=== PATIENT | female | born 1960 | race Caucasian/White ===

== ENCOUNTER 2016-10-22 09:54 | Inpatient (IN) | payer BC, OTHER ==
--- NOTE | 2016-10-22 10:19 | ER Document Report ---
ED General - General Chief Complaint: Vomiting Stated Complaint: VOMITING Mode of Arrival: Ambulatory Information source: Patient TRAVEL OUTSIDE OF THE [place] IN LAST 30 DAYS: No - HPI Onset: Other - 3 DAYS Onset/Duration: Gradual Quality of pain: Cramping, Dull, Fullness, Pressure Severity: Moderate Context: CHEMOTHERAPY 10/19 Associated symptoms: Nausea, Vomiting. denies: Chills, Nonproductive cough, Productive cough, Diarrhea, Fever Exacerbated by: Movement Relieved by: Remaining still - Related Data Allergies/Adverse Reactions: sulfamethoxazole [From Bactrim] Allergy (Verified 10/22/16 10:01) trimethoprim [From Bactrim] Allergy (Verified 10/22/16 10:01) Iodinated Contrast Media - Oral and [Iodinated Contrast Media - IV Dye] Adverse Reaction (Verified 10/22/16 10:01) n/v Past Medical History - General Information source: Patient, Relative - Social History Smoking Status: Unknown if Ever Smoked Cigarette use (# per day): No Chew tobacco use (# tins/day): No Frequency of alcohol use: None Drug Abuse: None Lives with: Spouse/Significant other Family History: Reviewed & Not Pertinent Patient has suicidal ideation: No Patient has homicidal ideation: No - Past Medical History Cardiac Medical History: Reports: None Denies: Hx Congestive Heart Failure, Hx Coronary Artery Disease, Hx DVT, Hx Heart Attack, Hx Hypercholesterolemia, Hx Hypertension, Hx Pulmonary Embolism Pulmonary Medical History: Reports: None Denies: Hx Asthma, Hx Bronchitis, Hx COPD, Hx Pneumonia Neurological Medical History: Reports: None. Denies: Hx Cerebrovascular Accident, Hx Seizures Endocrine Medical History: Reports: Hx Hypothyroidism. Denies: Hx Diabetes Mellitus Type 1, Hx Diabetes Mellitus Type 2, Hx Hyperthyroidism Renal/ Medical History: Reports: None Malignancy Medical History: Reports: Hx Ovarian Cancer - MMMT, Hx Renal (Kidney ) Cancer - Status post partial left nephrectomy for same GI Medical History: Reports: Hx Gastroesophageal Reflux Disease, Hx Ulcer. Denies: Hx Cirrhosis, Hx Hepatitis Musculoskeltal Medical History: Reports None, Denies Hx Arthritis Psychiatric Medical History: Reports: None Denies: Hx Depression Infectious Medical History: Denies: Hx Hepatitis Past Surgical History: Reports: Hx Abdominal Surgery, Hx Herniorrhaphy - Umbilical, Hx Hysterectomy, Hx Kidney (Renal Surgery), Hx Thyroid Surgery, Hx Tubal Ligation, Hx Umbilical Hernia, Other - Left nephrostomy tube. Prior colostomy, with subsequent closure of same. - Immunizations Hx Diphtheria, Pertussis, Tetanus Vaccination: Yes Hx Pneumococcal Vaccination: 10/23/95 Review of Systems - Review of Systems Constitutional: Weakness, Weight loss - 7# SINCE CHEMO EENT: No symptoms reported Cardiovascular: No symptoms reported Respiratory: No symptoms reported Gastrointestinal: See HPI, Constipation - NO BM LAST 3 DAYS Genitourinary: No symptoms reported Female Genitourinary: No symptoms reported Musculoskeletal: No symptoms reported Skin: No symptoms reported Neurological/Psychological: No symptoms reported Physical Exam - Vital signs Vitals: Temp Pulse Resp BP Pulse Ox 97.3 F 90 24 H 123/63 99 10/22/16 10:01 10/22/16 10:01 10/22/16 10:01 10/22/16 10:01 10/22/16 10:01 Interpretation: Tachypneic. No: Hypotensive, Tachycardic, Hypoxic, Febrile - General General appearance: Appears well, Alert In distress: None - HEENT Head: Normocephalic Eyes: Pale conjunctiva Conjunctiva: Normal Ears: Normal Nasal: Normal Mucous membranes: Dry Pharynx: Normal Neck: Normal - Respiratory Respiratory status: No respiratory distress Breath sounds: Normal - Cardiovascular Rhythm: Regular Heart sounds: Normal auscultation Murmur: No - Abdominal Distension: Distended, Tympanitic Bowel sounds: Normal Tenderness: Tender - MORE IN UPPER - Extremities General upper extremity: Normal inspection General lower extremity: Normal inspection. No: Edema - Neurological Neuro grossly intact: Yes Cognition: Normal Orientation: AAOx4 - Psychological Associated symptoms: Normal affect, Normal mood - Skin Skin Temperature: Cool Skin Moisture: Dry Skin Color: Pale Notes: [place] Course - Vital Signs Vital signs: Temp Pulse Resp BP Pulse Ox 97.3 F 90 24 H 123/63 99 10/22/16 10:01 10/22/16 10:01 10/22/16 10:01 10/22/16 10:01 10/22/16 10:01 - Laboratory Result Diagrams: 10/22/16 11:21 10/22/16 11:21 Laboratory results interpreted by me: 10/22/16 10/22/16 11:21 11:21 RBC 3.52 L Hgb 9.6 L Hct 29.4 L RDW 19.5 H Plt Count 710 H Seg Neuts % (Manual) 94 H Band Neutrophils % 2 L Lymphocytes % (Manual) 2 L Monocytes % (Manual) 1 L Abs Lymphs (Manual) 0.2 L Sodium 130.8 L Chloride 95 L Alkaline Phosphatase 132 H Total Protein 5.2 L Albumin 2.7 L - EKG Interpretation by Me EKG shows normal: Sinus rhythm, [place], Intervals, QRS Complexes, ST-T Waves Rate: Normal Rhythm: NSR - Consults DR. CORDERO Time consulted: 12:14 Consulted provider: will come to ER Discharge - Discharge Clinical Impression: Dehydration Vomiting Qualifiers: Vomiting type: unspecified Vomiting Intractability: non-intractable Nausea presence: with nausea Qualified Code(s): R11.2 - Nausea with vomiting, unspecified Abdominal pain Qualifiers: Abdominal location: generalized Qualified Code(s): R10.84 - Generalized abdominal pain Primary cancer of ovary with widespread metastatic disease Qualifiers: Laterality: left Qualified Code(s): C56.2 - Malignant neoplasm of left ovary Condition: Poor Disposition: ADMITTED INPATIENT Admitting Provider: Hospitalist Referrals: GILBERT BURGESS MD [Primary Care Provider] - Follow up as needed
[2016-10-22] MEDS ORDERED: NORMAL SALINE 1000 ML 500 ML IV ONE (10:28)
[2016-10-22] MEDS ORDERED: ONDANSETRON HCL INJ/PF 4 MG/2 ML SDV IV ONE (10:34)
[2016-10-22] MEDS ORDERED: HYDROMORPHONE HCL INJ/PF 2 MG/ML AMPULE IV ONE ×3 (10:34→12:06)
[2016-10-22 11:35] LABS: HEMATOCRIT 29.4 % (36.0-47.0); HEMOGLOBIN 9.6 g/dL (12.0-15.5); HGB HCT DIFFERENCE -0.6; MEAN CORPUSCULAR HEMOGLOBIN 27.2 pg (27.0-33.4); MEAN CORPUSCULAR HGB CONC 32.6 g/dL (32.0-36.0); MEAN CORPUSCULAR VOLUME 84 fl (80-97); RED BLOOD COUNT 3.52 10^6/uL (3.72-5.28); RED CELL DISTRIBUTION WIDTH 19.5 % (11.5-14.0); WHITE BLOOD COUNT 8.4 10^3/uL (4.0-10.5)
[2016-10-22 11:52] LABS: BAND NEUTROPHILS % (MANUAL) 2 % (3-5); BASOPHILS % (MANUAL) 1 % (0-2); EOSINOPHILS % (MANUAL) 0 % (0-6); LYMPHOCYTES % (MANUAL) 2 % (13-45); TOTAL CELLS COUNTED 100
[2016-10-22 11:53] LABS: ALANINE AMINOTRANSFERASE 26 U/L (9-52); ALBUMIN 2.7 g/dL (3.5-5.0); ALKALINE PHOSPHATASE 132 U/L (38-126); ANION GAP 10 (5-19); ASPARTATE AMINO TRANSFERASE 16 U/L (14-36); BILIRUBIN,TOTAL 0.4 mg/dL (0.2-1.3); BLOOD UREA NITROGEN 17 mg/dL (7-20); CALCIUM 9.1 mg/dL (8.4-10.2); CARBON DIOXIDE 26 mmol/L (22-30); CHLORIDE 95 mmol/L (98-107); CREATININE RESULT 0.82 mg/dL (0.52-1.25); GLUCOSE 90 mg/dL (75-110); POTASSIUM 4.7 mmol/L (3.6-5.0); SODIUM 130.8 mmol/L (137-145); TOTAL PROTEIN 5.2 g/dL (6.3-8.2)
[2016-10-22 11:54] LABS: ANISOCYTOSIS 1+; HYPOCHROMASIA 2+; TOXIC GRANULATION SLIGHT
[2016-10-22 12:35] LABS: APPEARANCE,URINE CLOUDY; BILIRUBIN,URINE NEGATIVE (NEGATIVE); GLUCOSE, URINE NEGATIVE (NEGATIVE); KETONES,URINE NEGATIVE (NEGATIVE); LEUKOCYTE ESTERASE,URINE LARGE (NEGATIVE); NITRITE,URINE NEGATIVE (NEGATIVE); PROTEIN,URINE 100 mg/dL (NEGATIVE); UROBILINOGEN,URINE NEGATIVE mg/dL (<2.0)
[2016-10-22] MEDS ORDERED: HYDROMORPHONE HCL INJ/PF 2 MG/ML AMPULE ONE (13:05)
[2016-10-22] MEDS ORDERED: ENOXAPARIN SODIUM INJ 40 MG/0.4 ML DISP.SYRIN SUBCUT ONE (14:00)
[2016-10-22] MEDS: DRONABINOL 2.5 MG CAPSULE PO SCH (14:59)
[2016-10-22] MEDS: HYDROMORPHONE HCL INJ/PF 2 MG/ML AMPULE IV PRN ×4 (14:59→21:51)
--- NOTE | 2016-10-22 15:36 | PDOC H&P ---
History of Present Illness Admission Date/PCP: 10/22/16 12:42 GILBERT BURGESS Patient complains of: Nausea, vomiting and abdominal pain History of Present Illness: JAEL EATON is a 55 year old unfortunate female, known to our service from previous admissions. She has a history stage IV adenosarcoma. She is a patient of Dr Adams, oncologist, locally. He had advised patient to seek Hospice care due to progression of disease despite aggressive treatment. She opted for another opinion instead , and has been seen and treated by [facility] in [place]. They told her she had MMT stage IV ovarian cancer and she could be treated. She received chemotherapy there on 10/19. She returned home yesterday and has been vomiting and having increasing abdominal pain and back pain since she got home. She is unable to keep her pain medications down and her pain has gotten out of control. 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 She has recurrent UTIs. Her urine is cloudy this am. She denies any fevers or chills. 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 Her pain is constant and waxes and wanes in intensity. Past Medical History Cardiac Medical History: Reports: None Denies: Congestive Heart Failure, Coronary Artery Disease, DVT, Myocardial Infarction, Hyperlipidema, Hypertension, Pulmonary Embolism Pulmonary Medical History: Reports: None Denies: Asthma, Bronchitis, Chronic Obstructive Pulmonary Disease (COPD), Pneumonia EENT Medical History: Reports: None Neurological Medical History: Reports: None Denies: Seizures Endocrine Medical History: Reports: Hypothyroidism Denies: Diabetes Mellitus Type 1, Diabetes Mellitus Type 2, Hyperthyroidism Renal/ Medical History: Reports: None Malignancy Medical History: Reports: Ovarian Cancer - MMMT, Renal (Kidney) Cancer - Status post partial left nephrectomy for same GI Medical History: Reports: Gastroesophageal Reflux Disease Denies: Cirrhosis, Hepatitis Musculoskeltal Medical History: Reports: None Denies: Arthritis Skin Medical History: Reports: None Psychiatric Medical History: Reports: None Denies: Depression Traumatic Medical History: Reports: None Hematology: Reports: Anemia Infectious Medical History: Reports: Other - ESBL of urine Past Surgical History Past Surgical History: Reports: Herniorrhaphy - Umbilical, Hysterectomy, Tubal Ligation, Other - Left nephrostomy tube. Prior colostomy, with subsequent closure of same. Social History Information Source: Patient Lives with: Spouse/Significant other Smoking Status: Never Smoker Frequency of Alcohol Use: None Hx Recreational Drug Use: No Drugs: None Hx Prescription Drug Abuse: No - Advance Directive Resuscitation Status: Full Code Surrogate healthcare decision maker:: [place], should she become incapcitated Family History Family History: Hypertension Parental Family History Reviewed: Yes Children Family History Reviewed: Yes Sibling(s) Family History Reviewed.: Yes Medication/Allergy Home Medications: Levothyroxine Sodium 200 mcg PO DAILY 09/30/14 Hydromorphone HCl [Hydromorphone ER] 1 tab PO DAILY 07/12/16 Ondansetron HCl [Zofran 8 mg Tablet] 1 tab PO BID 07/12/16 Promethazine HCl [Phenergan 25 mg Tablet] 2 tab PO QHS 07/12/16 Diphenhydramine HCl [Allergy] 25 mg PO DAILY 08/29/16 Hydromorphone HCl [Hydromorphone ER] 8 - 16 mg PO Q3H PRN 08/29/16 Melatonin 3 mg PO QHS 08/29/16 Omeprazole 40 mg PO DAILY 08/29/16 Ceftazidime [Fortaz] 1 gm IV Q8H #18 vial.port 09/28/16 Dronabinol [Marinol 2.5 mg Capsule] 5 mg PO BIDACLS #60 capsule 09/28/16 Ertapenem Sodium [Invanz Inj 1 gm Vial] 1 gm IV NOON #10 vial 09/28/16 Ondansetron [Zofran Odt] 8 mg PO Q6H #120 tab.rapdis 09/28/16 Polyethylene Glycol 3350 [Miralax Powder 17 gm/Packet] 17 gm PO DAILYP PRN #30 powd.pack 09/28/16 Promethazine HCl [Phenergan 25 mg Supp.rect] 25 mg SD Q4HP PRN #12 supp.rect 05/07 Sennosides/Docusate 8.6-50 mg [Senna Plus Tablet] 1 each PO BIDP PRN #60 tablet 09/28/16 Allergies/Adverse Reactions: sulfamethoxazole [From Bactrim] Allergy (Verified 10/22/16 10:01) trimethoprim [From Bactrim] Allergy (Verified 10/22/16 10:01) Iodinated Contrast Media - Oral and [Iodinated Contrast Media - IV Dye] Adverse Reaction (Verified 10/22/16 10:01) n/v Review of Systems Constitutional: PRESENT: fatigue, weakness Eyes: ABSENT: visual disturbances Ears: ABSENT: hearing changes Cardiovascular: ABSENT: chest pain, dyspnea on exertion, edema, orthropnea, palpitations Respiratory: ABSENT: cough, hemoptysis Gastrointestinal: PRESENT: abdominal pain, bloating, constipation, nausea, vomiting Genitourinary: PRESENT: dysuria Musculoskeletal: PRESENT: back pain Integumentary: ABSENT: rash, wounds Neurological: PRESENT: weakness Psychiatric: ABSENT: anxiety, depression, homidical ideation, suicidal ideation Endocrine: PRESENT: as per HPI Hematologic/Lymphatic: PRESENT: lymphadenopathy Physical Exam Vital Signs: Temp Pulse Resp BP Pulse Ox 97.3 F 83 24 H 118/55 L 96 10/22/16 10:01 10/22/16 14:04 10/22/16 10:01 10/22/16 14:04 10/22/16 14:04 General appearance: PRESENT: mild distress, thin, well-developed, well-nourished Head exam: PRESENT: atraumatic, normocephalic Eye exam: PRESENT: conjunctiva pink, EOMI, PERRLA. ABSENT: scleral icterus Ear exam: PRESENT: normal external ear exam Mouth exam: PRESENT: moist, tongue midline Neck exam: ABSENT: carotid bruit, JVD, lymphadenopathy, thyromegaly Respiratory exam: PRESENT: clear to auscultation cesar. ABSENT: rales, rhonchi, wheezes Cardiovascular exam: PRESENT: RRR. ABSENT: diastolic murmur, rubs, systolic murmur Pulses: PRESENT: normal carotid pulses, normal radial pulses GI/Abdominal exam: PRESENT: diminished bowel sounds, distended Rectal exam: PRESENT: deferred Gentrourinary exam: PRESENT: indwelling catheter - left nephrostomy Extremities exam: PRESENT: full ROM. ABSENT: calf tenderness, clubbing, pedal edema Neurological exam: PRESENT: alert, awake, oriented to person, oriented to place , oriented to time, oriented to situation, CN II-XII grossly intact. ABSENT: motor sensory deficit Psychiatric exam: PRESENT: appropriate affect, normal mood. ABSENT: homicidal ideation, suicidal ideation Skin exam: PRESENT: dry, pallor, warm Results Impressions: Abdomen X-Ray 10/22/16 10:34 IMPRESSION: NONOBSTRUCTED BOWEL-GAS PATTERN. RELATIVELY STABLE APPEARANCE OF KNOWN MASS BETTER CHARACTERIZED ON PRIOR CT. Assessment & Plan - Diagnosis (1) Metastatic adenocarcinoma Is this a current diagnosis for this admission?: YesPlan: Patient is getting chemotherapy at [facility] in [place]. She received her last chemotherapy on 10/19 and returned home yesterday. She has been vomiting and having diarrhea since she returned home. Will hydrate with IV fluids, prn anti-emetics and IV dilaudid for pain. (2) Abdominal pain Qualifiers: Abdominal location: generalized Qualified Code(s): R10.84 - Generalized abdominal pain Is this a current diagnosis for this admission?: YesPlan: IV dilaudid 2 mg IV q2h prn Along with current fentanyl patch (3) Primary cancer of ovary with widespread metastatic disease Qualifiers: Laterality: left Qualified Code(s): C56.2 - Malignant neoplasm of left ovary; C80.0 - Disseminated malignant neoplasm, unspecified Is this a current diagnosis for this admission?: Yes (4) Anemia due to antineoplastic chemotherapy Is this a current diagnosis for this admission?: YesPlan: Presently stable will monitor and transfuse hgb<8.0 (5) Dehydration Is this a current diagnosis for this admission?: YesPlan: IV hydration (6) UTI (urinary tract infection) Qualifiers: Urinary tract infection type: site unspecified Is this a current diagnosis for this admission?: YesPlan: Will start broad spectrum antibiotics and send urine for culture. 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 Is this a current diagnosis for this admission?: YesPlan: Saline douche as needed (11) DVT prophylaxis Is this a current diagnosis for this admission?: YesPlan: Lovenox 40 mg daily (12) Pain of metastatic malignancy Is this a current diagnosis for this admission?: YesPlan: Continue pain medications, with breakthrough IV prn analgesics - Time Time Spent: 50 to 70 Minutes Critical Time spent with patient: 25-34 minutes Medications reviewed and adjusted accordingly: Yes Anticipated discharge: Home with Homehealth - Inpatient Certification Based on my medical assessment, after consideration of the patient's comorbidities, presenting symptoms, or acuity I expect that the services needed warrant INPATIENT care.: Yes I certify that my determination is in accordance with my understanding of Medicare's requirements for reasonable and necessary INPATIENT services [42 CFR 412.3e].: Yes Medical Necessity: Failure to Improve With Outpatient Therapy, Need For IV Fluids, Need for Pain Control, Need for IV Antibiotics
[2016-10-22] MEDS: PROMETHAZINE HCL INJ 25 MG/1 ML VIAL IV PRN ×2 (18:22→23:18)
[2016-10-22] MEDS: ONDANSETRON HCL INJ/PF 4 MG/2 ML SDV IV PRN (19:36)
[2016-10-22] MEDS: DEXAMETHASONE SOD PHOSPHATE INJ 4 MG/1 ML VIAL IV SCH (21:52)
[2016-10-22] MEDS ORDERED: (PENDING PHARMACY ID) (Melatonin [Melatonin] 3 MG) PO SCH (22:00)
--- NOTE | 2016-10-22 22:33 | EKG REPORT ---
SEVERITY:- NORMAL ECG - SINUS RHYTHM : Confirmed by: Lobito Cortes MD 22-Oct-2016 22:32:53
[2016-10-23] MEDS: HYDROMORPHONE HCL INJ/PF 2 MG/ML AMPULE IV PRN ×9 (00:43→21:57)
[2016-10-23] MEDS: ONDANSETRON HCL INJ/PF 4 MG/2 ML SDV IV PRN ×4 (00:43→21:58)
[2016-10-23] MEDS: PROMETHAZINE HCL INJ 25 MG/1 ML VIAL IV PRN ×3 (04:20→20:12)
[2016-10-23 08:45] LABS: ABSOLUTE LYMPHOCYTES (AUTO) 0.4 10^3/uL (0.5-4.7); ABSOLUTE MONOCYTES (AUTO) 0.3 10^3/uL (0.1-1.4); ABSOLUTE NEUT (AUTO) 5.8 10^3/uL (1.7-8.2); BASOPHILS % (AUTO) 0.5 % (0-2); EOSINOPHILS % (AUTO) 0.3 % (0-6); HEMATOCRIT 29.4 % (36.0-47.0); HEMOGLOBIN 9.6 g/dL (12.0-15.5); HGB HCT DIFFERENCE -0.6; LYMPHOCYTES % (AUTO) 6.4 % (13-45); MEAN CORPUSCULAR HEMOGLOBIN 27.3 pg (27.0-33.4); MEAN CORPUSCULAR HGB CONC 32.8 g/dL (32.0-36.0); MEAN CORPUSCULAR VOLUME 83 fl (80-97); MONOCYTES % (AUTO) 3.9 % (3-13); RED BLOOD COUNT 3.53 10^6/uL (3.72-5.28); RED CELL DISTRIBUTION WIDTH 19.5 % (11.5-14.0); SEGMENTED NEUTROPHILS % (AUTO) 88.9 % (42-78); WHITE BLOOD COUNT 6.5 10^3/uL (4.0-10.5)
[2016-10-23 09:03] LABS: ANION GAP 12 (5-19); BLOOD UREA NITROGEN 14 mg/dL (7-20); CALCIUM 8.9 mg/dL (8.4-10.2); CARBON DIOXIDE 26 mmol/L (22-30); CHLORIDE 95 mmol/L (98-107); CREATININE RESULT 0.84 mg/dL (0.52-1.25); GLUCOSE 77 mg/dL (75-110); POTASSIUM 4.6 mmol/L (3.6-5.0); SODIUM 132.7 mmol/L (137-145)
[2016-10-23] MEDS: LEVOTHYROXINE SODIUM 0.1 MG TABLET PO SCH (09:03)
[2016-10-23] MEDS: DIPHENHYDRAMINE HCL 25 MG CAPSULE PO SCH (09:03)
[2016-10-23] MEDS: DEXAMETHASONE SOD PHOSPHATE INJ 4 MG/1 ML VIAL IV SCH (09:04)
[2016-10-23] MEDS: ENOXAPARIN SODIUM INJ 40 MG/0.4 ML DISP.SYRIN SUBCUT SCH (09:18)
[2016-10-23] MEDS: ERTAPENEM SODIUM 1 GM in NORMAL SALINE 50 ML IV SCH (09:20)
[2016-10-23] MEDS ORDERED: FENTANYL 100 MCG/HR PATCH.TD72 TD SCH ×3 (10:00→14:00)
[2016-10-23] MEDS ORDERED: FLUTICASONE NASAL SPRAY 50 MCG/SPRY 120 SPRAY/16 GM NASL SCH (10:00)
[2016-10-23] MEDS: NORMAL SALINE 1000 ML 1,000 ML IV PRN ×2 (10:44→11:21)
[2016-10-23] MEDS ORDERED: FLUTICASONE PROPIONATE HFA 110 MCG/PUFF 12 GM MDI IH ONE (11:00)
[2016-10-23] MEDS ORDERED: FLUTICASONE NASAL SPRAY 50 MCG/SPRY 120 SPRAY/16 GM NASL ONE (11:00)
[2016-10-23] MEDS: DRONABINOL 2.5 MG CAPSULE PO SCH ×2 (11:14→17:53)
--- NOTE | 2016-10-23 11:52 | PDOC PROGRESS REPORT ---
Subjective Progress Note for:: 10/23/16 Subjective:: Patient is seen on morning rounds. She is resting in bed. She is still experiencing nausea, but has had no vomiting. She continues to have significant pain in her back and abdomen. Dilaudid takes the pain away but it returns prior to being due again. She has been able to drink without any vomiting. She denies any shortness of breath or dyspnea. Physical Exam Vital Signs: Temp Pulse Resp BP Pulse Ox 97.9 F 80 20 129/65 H 97 10/23/16 07:35 10/23/16 07:35 10/23/16 07:35 10/23/16 07:35 10/23/16 07:35 Intake & Output 10/22/16 10/23/16 10/24/16 06:59 06:59 06:59 Intake Total 770 Output Total 50 Balance 720 Weight 48.6 kg General appearance: PRESENT: no acute distress, thin, other - chronically ill appearing Head exam: PRESENT: atraumatic, normocephalic Eye exam: PRESENT: conjunctiva pink, EOMI, PERRLA. ABSENT: scleral icterus Ear exam: PRESENT: normal external ear exam Mouth exam: PRESENT: moist, tongue midline Neck exam: ABSENT: carotid bruit, JVD, lymphadenopathy, thyromegaly Respiratory exam: PRESENT: clear to auscultation cesar. ABSENT: rales, rhonchi, wheezes Cardiovascular exam: PRESENT: RRR. ABSENT: diastolic murmur, rubs, systolic murmur Pulses: PRESENT: normal dorsalis pedis pul Vascular exam: PRESENT: normal capillary refill GI/Abdominal exam: PRESENT: ascites Rectal exam: PRESENT: deferred Extremities exam: PRESENT: full ROM. ABSENT: calf tenderness, clubbing, pedal edema Neurological exam: PRESENT: alert, awake, oriented to person, oriented to place , oriented to time, oriented to situation, CN II-XII grossly intact. ABSENT: motor sensory deficit Psychiatric exam: PRESENT: appropriate affect, normal mood. ABSENT: homicidal ideation, suicidal ideation Skin exam: PRESENT: dry, intact, warm. ABSENT: cyanosis, rash Results Laboratory Results: 10/23/16 08:31 10/23/16 08:31 10/23/16 10/23/16 08:31 08:31 WBC 6.5 RBC 3.53 L Hgb 9.6 L Hct 29.4 L MCV 83 MCH 27.3 MCHC 32.8 RDW 19.5 H Plt Count 690 H Seg Neutrophils % 88.9 H Lymphocytes % 6.4 L Monocytes % 3.9 Eosinophils % 0.3 Basophils % 0.5 Absolute Neutrophils 5.8 Absolute Lymphocytes 0.4 L Absolute Monocytes 0.3 Absolute Eosinophils 0.0 Absolute Basophils 0.0 Sodium 132.7 L Potassium 4.6 Chloride 95 L Carbon Dioxide 26 Anion Gap 12 BUN 14 Creatinine 0.84 Est GFR ( Amer) > 60 Est GFR (Non-Af Amer) > 60 Glucose 77 Calcium 8.9 Impressions: Abdomen X-Ray 10/22/16 10:34 IMPRESSION: NONOBSTRUCTED BOWEL-GAS PATTERN. RELATIVELY STABLE APPEARANCE OF KNOWN MASS BETTER CHARACTERIZED ON PRIOR CT. Assessment & Plan - Diagnosis (1) Metastatic adenocarcinoma Is this a current diagnosis for this admission?: YesPlan: Patient is getting chemotherapy at [facility] in [place]. She received her last chemotherapy on 10/19 and returned home yesterday. She has been vomiting and having diarrhea since she returned home. Will hydrate with IV fluids, prn anti-emetics and IV dilaudid for pain. (2) Abdominal pain Qualifiers: Abdominal location: generalized Qualified Code(s): R10.84 - Generalized abdominal pain Is this a current diagnosis for this admission?: YesPlan: IV dilaudid 2 mg IV q2h prn Along with current fentanyl patch (3) Primary cancer of ovary with widespread metastatic disease Qualifiers: Laterality: left Qualified Code(s): C56.2 - Malignant neoplasm of left ovary; C80.0 - Disseminated malignant neoplasm, unspecified Is this a current diagnosis for this admission?: Yes (4) Anemia due to antineoplastic chemotherapy Is this a current diagnosis for this admission?: YesPlan: Presently stable will monitor and transfuse hgb<8.0 (5) Dehydration Is this a current diagnosis for this admission?: YesPlan: IV hydration (6) UTI (urinary tract infection) Qualifiers: Urinary tract infection type: site unspecified Is this a current diagnosis for this admission?: YesPlan: Will start broad spectrum antibiotics and send urine for culture. 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
[2016-10-23] MEDS ORDERED: PROMETHAZINE HCL 25 MG TABLET PO PRN ×2 (11:53→12:23)
[2016-10-23] MEDS ORDERED: FENTANYL 25 MCG/HR PATCH.TD72 TD SCH ×2 (12:00→14:00)
[2016-10-23] MEDS ORDERED: METOCLOPRAMIDE HCL 10 MG TABLET PO SCH (12:00)
[2016-10-23] MEDS ORDERED: (PENDING PHARMACY ID) (Melatonin [Melatonin] 3 MG) PO SCH (13:00)
[2016-10-23] MEDS: OXYCODONE HCL IR 5 MG TABLET PO PRN ×2 (13:23→17:53)
[2016-10-23] MEDS: METOCLOPRAMIDE HCL 10 MG TABLET PO SCH ×2 (14:23→21:57)
[2016-10-23] MEDS ORDERED: FLUTICASONE PROPIONATE HFA 110 MCG/PUFF 12 GM MDI IH SCH (22:00)
[2016-10-24] MEDS: HYDROMORPHONE HCL INJ/PF 2 MG/ML AMPULE IV PRN ×8 (00:24→23:56)
[2016-10-24] MEDS: PROMETHAZINE HCL INJ 25 MG/1 ML VIAL IV PRN ×5 (00:24→21:47)
[2016-10-24] MEDS: ONDANSETRON HCL INJ/PF 4 MG/2 ML SDV IV PRN ×5 (02:36→23:56)
[2016-10-24] MEDS: METOCLOPRAMIDE HCL 10 MG TABLET PO SCH ×3 (05:59→21:47)
[2016-10-24 07:02] LABS: ABSOLUTE LYMPHOCYTES (AUTO) 0.5 10^3/uL (0.5-4.7); ABSOLUTE MONOCYTES (AUTO) 0.3 10^3/uL (0.1-1.4); ABSOLUTE NEUT (AUTO) 6.5 10^3/uL (1.7-8.2); BASOPHILS % (AUTO) 0.2 % (0-2); EOSINOPHILS % (AUTO) 0.1 % (0-6); HEMATOCRIT 29.6 % (36.0-47.0); HGB HCT DIFFERENCE 0.4; LYMPHOCYTES % (AUTO) 7.1 % (13-45); MEAN CORPUSCULAR HEMOGLOBIN 28.4 pg (27.0-33.4); MEAN CORPUSCULAR HGB CONC 33.7 g/dL (32.0-36.0); MEAN CORPUSCULAR VOLUME 84 fl (80-97); MONOCYTES % (AUTO) 4.6 % (3-13); RED BLOOD COUNT 3.52 10^6/uL (3.72-5.28); RED CELL DISTRIBUTION WIDTH 19.2 % (11.5-14.0); WHITE BLOOD COUNT 7.4 10^3/uL (4.0-10.5)
[2016-10-24 07:13] LABS: ANION GAP 14 (5-19); BLOOD UREA NITROGEN 13 mg/dL (7-20); CALCIUM 8.4 mg/dL (8.4-10.2); CARBON DIOXIDE 22 mmol/L (22-30); CHLORIDE 96 mmol/L (98-107); CREATININE RESULT 0.76 mg/dL (0.52-1.25); GLUCOSE 81 mg/dL (75-110); SODIUM 132.4 mmol/L (137-145)
[2016-10-24] MEDS: ENOXAPARIN SODIUM INJ 40 MG/0.4 ML DISP.SYRIN SUBCUT SCH (09:29)
[2016-10-24] MEDS: ERTAPENEM SODIUM 1 GM in NORMAL SALINE 50 ML IV SCH (09:55)
[2016-10-24] MEDS: LEVOTHYROXINE SODIUM 0.1 MG TABLET PO SCH (09:57)
[2016-10-24] MEDS: DIPHENHYDRAMINE HCL 25 MG CAPSULE PO SCH (09:57)
[2016-10-24] MEDS: OXYCODONE HCL IR 5 MG TABLET PO PRN ×4 (09:58→21:47)
[2016-10-24] MEDS ORDERED: FLUTICASONE NASAL SPRAY 50 MCG/SPRY 120 SPRAY/16 GM NASL SCH (10:00)
[2016-10-24] MEDS ORDERED: LEVOFLOXACIN 500 MG TABLET PO ONE (11:30)
[2016-10-24] MEDS: DRONABINOL 2.5 MG CAPSULE PO SCH ×2 (12:21→16:32)
[2016-10-24] MEDS: NORMAL SALINE 1000 ML 1,000 ML IV PRN ×2 (12:23→21:48)
--- NOTE | 2016-10-24 16:32 | PDOC PROGRESS REPORT ---
Subjective Progress Note for:: 10/24/16 Subjective:: Patient is seen on morning rounds. She is resting in bed. She is still experiencing nausea, but has had no vomiting. She continues to have significant pain in her back and abdomen. Dilaudid takes the pain away but it returns prior to being due again. She has been able to drink without any vomiting. She denies any shortness of breath or dyspnea. Physical Exam Vital Signs: Temp Pulse Resp BP Pulse Ox 97.5 F 102 H 16 135/70 H 98 10/23/16 19:52 10/24/16 14:00 10/23/16 19:52 10/23/16 19:52 10/23/16 19:52 Intake & Output 10/23/16 10/24/16 10/25/16 06:59 06:59 06:59 Intake Total 770 2822 Output Total 50 Balance 720 2822 Weight 48.6 kg 47.7 kg General appearance: PRESENT: no acute distress, thin, well-developed, other - Chronically ill appearing Head exam: PRESENT: atraumatic, normocephalic Eye exam: PRESENT: conjunctiva pink, EOMI, PERRLA. ABSENT: scleral icterus Ear exam: PRESENT: normal external ear exam Mouth exam: PRESENT: moist, tongue midline Neck exam: ABSENT: carotid bruit, JVD, lymphadenopathy, thyromegaly Respiratory exam: PRESENT: clear to auscultation cesar. ABSENT: rales, rhonchi, wheezes Cardiovascular exam: PRESENT: RRR. ABSENT: diastolic murmur, rubs, systolic murmur Pulses: PRESENT: normal dorsalis pedis pul GI/Abdominal exam: PRESENT: firm, guarding, hyperactive bowel sounds, tenderness Rectal exam: PRESENT: deferred Extremities exam: PRESENT: full ROM. ABSENT: calf tenderness, clubbing, pedal edema Neurological exam: PRESENT: alert, awake, oriented to person, oriented to place , oriented to time, oriented to situation, CN II-XII grossly intact. ABSENT: motor sensory deficit Psychiatric exam: PRESENT: appropriate affect, normal mood. ABSENT: homicidal ideation, suicidal ideation Skin exam: PRESENT: dry, intact, warm. ABSENT: cyanosis, rash Results Laboratory Results: 10/24/16 05:35 10/24/16 05:35 10/24/16 10/24/16 05:35 05:35 WBC 7.4 RBC 3.52 L Hgb 10.0 L Hct 29.6 L MCV 84 MCH 28.4 MCHC 33.7 RDW 19.2 H Plt Count 825 H Seg Neutrophils % 88.0 H Lymphocytes % 7.1 L Monocytes % 4.6 Eosinophils % 0.1 Basophils % 0.2 Absolute Neutrophils 6.5 Absolute Lymphocytes 0.5 Absolute Monocytes 0.3 Absolute Eosinophils 0.0 Absolute Basophils 0.0 Sodium 132.4 L Potassium 5.0 Chloride 96 L Carbon Dioxide 22 Anion Gap 14 BUN 13 Creatinine 0.76 Est GFR ( Amer) > 60 Est GFR (Non-Af Amer) > 60 Glucose 81 Calcium 8.4 10/23/16 04:55 Nasophary (Mrsa Only) MRSA Surveillance Culture - Final MRSA RECOVERED Impressions: Abdomen X-Ray 10/22/16 10:34 IMPRESSION: NONOBSTRUCTED BOWEL-GAS PATTERN. RELATIVELY STABLE APPEARANCE OF KNOWN MASS BETTER CHARACTERIZED ON PRIOR CT. Assessment & Plan - Diagnosis (1) Metastatic adenocarcinoma Is this a current diagnosis for this admission?: YesPlan: Patient is getting chemotherapy at [facility] in [place]. She received her last chemotherapy on 10/19 and returned home yesterday. She has been vomiting and having diarrhea since she returned home. Will hydrate with IV fluids, prn anti-emetics and IV dilaudid for pain. (2) Abdominal pain Qualifiers: Abdominal location: generalized Qualified Code(s): R10.84 - Generalized abdominal pain Is this a current diagnosis for this admission?: YesPlan: IV dilaudid 2 mg IV q2h prn Along with current fentanyl patch (3) Primary cancer of ovary with widespread metastatic disease Qualifiers: Laterality: left Qualified Code(s): C56.2 - Malignant neoplasm of left ovary; C80.0 - Disseminated malignant neoplasm, unspecified Is this a current diagnosis for this admission?: Yes (4) Anemia due to antineoplastic chemotherapy Is this a current diagnosis for this admission?: YesPlan: Presently stable will monitor and transfuse hgb<8.0 (5) Dehydration Is this a current diagnosis for this admission?: YesPlan: IV hydration (6) UTI (urinary tract infection) Qualifiers: Urinary tract infection type: site unspecified Is this a current diagnosis for this admission?: YesPlan: Will start broad spectrum antibiotics and send urine for culture. 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
[2016-10-25] MEDS: OXYCODONE HCL IR 5 MG TABLET PO PRN ×5 (01:34→18:24)
[2016-10-25] MEDS: PROMETHAZINE HCL INJ 25 MG/1 ML VIAL IV PRN ×5 (01:35→21:37)
[2016-10-25] MEDS: HYDROMORPHONE HCL INJ/PF 2 MG/ML AMPULE IV PRN ×6 (03:58→23:49)
[2016-10-25] MEDS: ONDANSETRON HCL INJ/PF 4 MG/2 ML SDV IV PRN ×5 (03:58→23:49)
[2016-10-25] MEDS: NORMAL SALINE 1000 ML 1,000 ML IV PRN ×2 (05:57→21:37)
[2016-10-25] MEDS: METOCLOPRAMIDE HCL 10 MG TABLET PO SCH ×3 (05:57→21:37)
[2016-10-25 06:35] LABS: ABSOLUTE LYMPHOCYTES (AUTO) 0.6 10^3/uL (0.5-4.7); ABSOLUTE MONOCYTES (AUTO) 0.4 10^3/uL (0.1-1.4); ABSOLUTE NEUT (AUTO) 4.6 10^3/uL (1.7-8.2); BASOPHILS % (AUTO) 0.3 % (0-2); EOSINOPHILS % (AUTO) 0.3 % (0-6); HEMOGLOBIN 9.6 g/dL (12.0-15.5); HGB HCT DIFFERENCE -0.2; LYMPHOCYTES % (AUTO) 11.5 % (13-45); MEAN CORPUSCULAR HEMOGLOBIN 27.6 pg (27.0-33.4); MEAN CORPUSCULAR VOLUME 84 fl (80-97); MONOCYTES % (AUTO) 6.9 % (3-13); RED BLOOD COUNT 3.47 10^6/uL (3.72-5.28); RED CELL DISTRIBUTION WIDTH 19.3 % (11.5-14.0); WHITE BLOOD COUNT 5.6 10^3/uL (4.0-10.5)
[2016-10-25 06:51] LABS: ANION GAP 12 (5-19); BLOOD UREA NITROGEN 11 mg/dL (7-20); CALCIUM 8.3 mg/dL (8.4-10.2); CARBON DIOXIDE 24 mmol/L (22-30); CHLORIDE 97 mmol/L (98-107); CREATININE RESULT 0.75 mg/dL (0.52-1.25); GLUCOSE 77 mg/dL (75-110); POTASSIUM 4.2 mmol/L (3.6-5.0); SODIUM 132.9 mmol/L (137-145)
[2016-10-25] MEDS: ENOXAPARIN SODIUM INJ 40 MG/0.4 ML DISP.SYRIN SUBCUT SCH (07:47)
[2016-10-25] MEDS: ERTAPENEM SODIUM 1 GM in NORMAL SALINE 50 ML IV SCH (09:55)
[2016-10-25] MEDS: LEVOFLOXACIN 500 MG TABLET PO SCH (09:55)
[2016-10-25] MEDS: DIPHENHYDRAMINE HCL 25 MG CAPSULE PO SCH (09:57)
[2016-10-25] MEDS: LEVOTHYROXINE SODIUM 0.1 MG TABLET PO SCH (09:57)
[2016-10-25] MEDS: DRONABINOL 2.5 MG CAPSULE PO SCH ×2 (12:13→16:31)
--- NOTE | 2016-10-25 14:03 | PDOC PROGRESS REPORT ---
Subjective Progress Note for:: 10/25/16 Subjective:: Patient is seen on morning rounds. She is resting in bed. She is still experiencing nausea and vomiting. She has vomited two times this morning. She has been able to eat small amountsShe continues to have significant pain in her back and abdomen. Dilaudid takes the pain away but it returns prior to being due again. We restarted She denies any shortness of breath or dyspnea. Physical Exam Vital Signs: Temp Pulse Resp BP Pulse Ox 98.7 F 97 17 139/86 H 97 10/25/16 04:00 10/25/16 07:00 10/25/16 04:00 10/25/16 04:00 10/25/16 04:00 Intake & Output 10/24/16 10/25/16 10/26/16 06:59 06:59 06:59 Intake Total 2822 3843 Balance 2822 3843 Weight 47.7 kg 48.3 kg General appearance: PRESENT: no acute distress, thin, well-developed, other - chronically ill appearing Head exam: PRESENT: atraumatic, normocephalic Eye exam: PRESENT: conjunctiva pink, EOMI, PERRLA. ABSENT: scleral icterus Ear exam: PRESENT: normal external ear exam Mouth exam: PRESENT: moist, tongue midline Neck exam: ABSENT: carotid bruit, JVD, lymphadenopathy, thyromegaly Respiratory exam: PRESENT: clear to auscultation cesar. ABSENT: rales, rhonchi, wheezes Cardiovascular exam: PRESENT: RRR. ABSENT: diastolic murmur, rubs, systolic murmur Pulses: PRESENT: normal dorsalis pedis pul GI/Abdominal exam: PRESENT: distended, firm, hyperactive bowel sounds, tenderness, other - palpable mass left abdomen Rectal exam: PRESENT: deferred Extremities exam: PRESENT: full ROM. ABSENT: calf tenderness, clubbing, pedal edema Neurological exam: PRESENT: alert, awake, oriented to person, oriented to place , oriented to time, oriented to situation, CN II-XII grossly intact. ABSENT: motor sensory deficit Psychiatric exam: PRESENT: appropriate affect, normal mood. ABSENT: homicidal ideation, suicidal ideation Skin exam: PRESENT: dry, intact, warm. ABSENT: cyanosis, rash Results Laboratory Results: 10/25/16 05:50 10/25/16 05:50 10/25/16 10/25/16 05:50 05:50 WBC 5.6 RBC 3.47 L Hgb 9.6 L Hct 29.0 L MCV 84 MCH 27.6 MCHC 33.0 RDW 19.3 H Plt Count 739 H Seg Neutrophils % 81.0 H Lymphocytes % 11.5 L Monocytes % 6.9 Eosinophils % 0.3 Basophils % 0.3 Absolute Neutrophils 4.6 Absolute Lymphocytes 0.6 Absolute Monocytes 0.4 Absolute Eosinophils 0.0 Absolute Basophils 0.0 Sodium 132.9 L Potassium 4.2 Chloride 97 L Carbon Dioxide 24 Anion Gap 12 BUN 11 Creatinine 0.75 Est GFR ( Amer) > 60 Est GFR (Non-Af Amer) > 60 Glucose 77 Calcium 8.3 L 10/23/16 04:55 Nasophary (Mrsa Only) MRSA Surveillance Culture - Final MRSA RECOVERED Impressions: Abdomen X-Ray 10/22/16 10:34 IMPRESSION: NONOBSTRUCTED BOWEL-GAS PATTERN. RELATIVELY STABLE APPEARANCE OF KNOWN MASS BETTER CHARACTERIZED ON PRIOR CT. Assessment & Plan - Diagnosis (1) Metastatic adenocarcinoma Is this a current diagnosis for this admission?: YesPlan: Patient is getting chemotherapy at [facility] in [place]. She received her last chemotherapy on 10/19 and returned home yesterday. She has been vomiting and having diarrhea since she returned home. Will hydrate with IV fluids, prn anti-emetics and IV dilaudid for pain. (2) Abdominal pain Qualifiers: Abdominal location: generalized Qualified Code(s): R10.84 - Generalized abdominal pain Is this a current diagnosis for this admission?: YesPlan: IV dilaudid 2 mg IV q2h prn Along with current fentanyl patch (3) Primary cancer of ovary with widespread metastatic disease Qualifiers: Laterality: left Qualified Code(s): C56.2 - Malignant neoplasm of left ovary; C80.0 - Disseminated malignant neoplasm, unspecified Is this a current diagnosis for this admission?: Yes (4) Anemia due to antineoplastic chemotherapy Is this a current diagnosis for this admission?: YesPlan: Presently stable will monitor and transfuse hgb<8.0 (5) Dehydration Is this a current diagnosis for this admission?: YesPlan: IV hydration (6) UTI (urinary tract infection) Qualifiers: Urinary tract infection type: site unspecified Is this a current diagnosis for this admission?: YesPlan: Will start broad spectrum antibiotics and send urine for culture. 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
[2016-10-25] MEDS: LUBIPROSTONE 24 MCG CAPSULE PO SCH (16:30)
[2016-10-25] MEDS: FENTANYL CITRATE BUCCAL PRN (21:37)
[2016-10-26] MEDS: HYDROMORPHONE HCL INJ/PF 2 MG/ML AMPULE IV PRN ×6 (02:22→16:51)
[2016-10-26] MEDS: PROMETHAZINE HCL INJ 25 MG/1 ML VIAL IV PRN ×3 (02:23→12:10)
[2016-10-26] MEDS: NORMAL SALINE 1000 ML 1,000 ML IV PRN (05:23)
[2016-10-26] MEDS: ONDANSETRON HCL INJ/PF 4 MG/2 ML SDV IV PRN ×3 (05:23→16:50)
[2016-10-26] MEDS: METOCLOPRAMIDE HCL 10 MG TABLET PO SCH ×2 (05:23→14:25)
[2016-10-26] MEDS: ENOXAPARIN SODIUM INJ 40 MG/0.4 ML DISP.SYRIN SUBCUT SCH (07:54)
--- NOTE | 2016-10-26 09:23 | CONSULTATION REPORT E ---
Consultation Report NAME: JAEL EATON : 1960 AGE: 55Y DATE: 10/26/2016 435 A TO: ROBINSON AGGARWAL FROM: MILAD CORDERO Requesting Physician REASON FOR CONSULTATION: Chronic pain secondary to metastatic cancer. HISTORY OF PRESENT ILLNESS: The patient is a 55-year-old female who we were consulted for for intractable pain. She was initially admitted to the hospital for reported persistent, recurrent nausea and vomiting and increased abdominal pain. She has an ongoing history of metastatic cancer that originated as ovarian cancer, currently being followed by Dr. Adams. She states that she is also being treated by [facility] out of [place] in which she is obtaining chemotherapy. The patient states that after her chemotherapy treatment, she tends to have ongoing nausea, vomiting and increased abdominal pain. She has been diagnosed with an NMT stage IV ovarian cancer as well. She states that her pain persists and currently as a level 4 and that it flares up and it actually becomes a level 5 on the pain scale. She states the pain is a constant, aching, deep pain and pressure of the abdomen and along the pelvic floor of the abdomen and at times radiates to the lower lumbar spine. She states that she has been treated for ongoing chronic pain since she began to have abdominal pain with distention as well as possible urinary tract infection. She currently has colostomy in place as well. She states that her pain is typically controlled with her pain regimen which consists of oxycodone 20 mg every 3 hours as needed; fentanyl 125 mcg every 72 hours; Exalgo extended release unknown dosing once daily; as well as Dilaudid 8 mg 1 to 2 tablets every 3 hours as needed. Since her increased pain associated with chemotherapy, she states that the pain has not been as well controlled. She states that the current regimen of IV Dilaudid that she is receiving at the rate of 3 mg every 2 hours as needed and oxycodone 30 mg every 3 hours as needed is not lasting. She notes that she still has some vomiting at times and has concerns that the oxycodone that she is taking is not actually staying in her system long enough to provide some level of relief. The Dilaudid is actually giving her about 2 to 3 hours' worth of relief in between doses. She usually spends the first hour sedated and sleeping. She wakes up and has some minor relief, but notes that the pain becomes progressively worse at that time. She has not been seen by Dr. Adams since the last round of treatment of chemotherapy at [facility]. The patient also notes that she has been diagnosed with metastasis of the cancer to the lumbar spine and associates that pain with the abdomen pain as well as with the cancer. She notes that she has had a left nephrostomy tube that was placed secondary to hydronephrosis on the left from a tumor compression and rectovaginal fistula. Admits to having recurrent urinary tract infections as well. PAST MEDICAL HISTORY: Significant for: 1. Hypothyroidism. 2. Ovarian cancer, NMT. 3. Renal cancer secondary to partial left nephrectomy. 4. Gastroesophageal reflux disease. 5. ESBL of the urine. PAST SURGICAL HISTORY: Significant for: 1. Colostomy with subsequent closure. 2. Tubal ligation. 3. Hysterectomy. 4. Left nephrostomy tube placement. 5. Herniorrhaphy. SOCIAL HISTORY: Significant as follows: The patient lives with her . No history of smoking, alcohol abuse or recreational drug use reported at this time. FAMILY HISTORY: Significant for hypertension as far as she can tell. MEDICATIONS: The patient's home medications are significant for: 1. Phenergan 25 mg 1 to 2 tablets at bedtime. 2. Ondansetron Zofran 8 mg 1 tablet twice a day as needed. 3. Using extended release hydromorphone 1 tablet daily. 4. Levothyroxine 200 mcg daily. 5. Immediate release hydromorphone 8 mg 1 to 2 tablets every 3 hours as needed. 6. Melatonin 3 mg at bedtime. 7. Omeprazole 40 mg daily. 8. Marinol 2.5 mg capsule, 5 mg b.i.d. 9. Invanz injection 1 g vial, gets 1 g IV every day at noon. 10. MiraLax she is using 17 g daily to assist with the opioid-induced constipation. 11. Senna Plus tablets 1 twice a day. CURRENT REGIMEN OF MEDICATION WHILE IN HOSPITAL FOR PAIN: 1. Fentanyl 25 mcg every 72 hours. 2. Oxycodone 30 mg 1 tablet every 3 hours as needed. 3. Dilaudid IV 3 mg every 2 hours as needed. ALLERGIES: Significant for: 1. BACTRIM. 2. SULFA. 3. CONTRAST DYE. REVIEW OF SYSTEMS: CONSTITUTIONAL: Reports some fatigue, weakness, issues with memory at times. EYES, EARS, NOSE, THROAT: Denies any visual disturbance, difficulty hearing, issues with swallowing or chewing. CARDIOVASCULAR: Denies any chest pain, tightness, palpitations. RESPIRATORY: Denies any cough, hemoptysis, wheezing. GASTROINTESTINAL: Reports abdominal pain, distention, bloating, associated nausea and vomiting. GENITOURINARY: Admits to having dysuria. MUSCULOSKELETAL: Denies any lower extremity pain; however, does complain of ongoing chronic neck pain. SKIN: Denies any rashes, lesions, wounds. NEUROLOGICAL: The patient does admit to having some generalized weakness numbness of the lower extremities associated, but denies any paresthesias. PSYCHIATRIC: Denies any homicidal or suicidal ideations. HEMATOLOGIC: No lymphadenopathy. PHYSICAL EXAMINATION: VITAL SIGNS: Temperature 98.7, pulse 97, respirations 17, blood pressure 139/86, pulse oximetry 97% on room air. GENERAL APPEARANCE: The patient appears to be fatigued. She is a relatively thin lady with noted discomfort sitting in a chair, alert and oriented x3. HEAD: Appears to be normocephalic. EYES: PERRLA. EARS: Hearing appears to be within normal limits. NECK: No JVD, lymphadenopathy, goiters, masses noted. Trachea is midline. No difficulty in swallowing noted. RESPIRATORY: Lungs are clear to auscultation bilaterally. CARDIOVASCULAR: Regular rate and rhythm. No murmurs, gallops, or rubs. PULSES: Normal dorsalis pedis. Normal brachial pulse, carotid pulse and radial pulse on exam. ABDOMEN: Noted diffuse tenderness to palpation of the abdomen, greater on the left lower quadrant and left upper quadrant as well as the right upper quadrant. Moderate distention noted. Positive bowel sounds. Very tender to palpation in all 4 quadrants. Unable to obtain tympany due to the amount of patient's tenderness on exam. Noted palpable mass of the left upper and left lower quadrant on exam as well secondary to cancer formation. EXTREMITIES: Noted for range of motion. NEUROLOGICAL: The patient is alert and oriented x3. Noted weakness. Strength is about 4/5 in the upper extremity, lower extremity bilaterally. Cranial nerves grossly are intact. No loss of sensation of the upper extremities or lower extremities on exam. SPINE: Noted diffuse tenderness to palpation of the lumbar spine, greatest at midline associated with L3, L4 and L5. Range of motion unable to obtain due to amount of pain as well as associated fall risk. SKIN: No rashes or lesions noted on exam. Noted port placement on the left flank nephrostomy as well as noted port placement on the right chest wall. PSYCHIATRIC: The patient appears overall to be in a good mood with no noted homicidal or suicidal ideations. RADIOLOGICAL REPORTS: Abdominal x-ray performed on 10/22/2016 showed nonobstructive bowel gas pattern with stable appearance of known mass better characterized on previous CT. ASSESSMENT AND PLAN: 1. Metastatic adenocarcinoma. 2. Chronic abdominal pain. 3. Pain with metastatic *------*. RECOMMENDATIONS: Recommendations from the pain management standpoint at this point. Reviewed previous medications patient was taking. Discussed and reviewed with the patient and 's expectations. At this point, the patient states that she does not want to go on hospice as she states, "I am not ready to ." Recommendation that we will stop the oxycodone that she is currently taking 30 mg and continue with the fentanyl 125 mcg Duragesic patches as well as the Dilaudid 3 mg IV every 2 hours p.r.n. In addition, will start on Actiq 400 mcg 1 lozenge every 4 hours as needed for management of pain. Will try to streamline some of her medication. Overall, it does not appear that the medication is holding pain to a tolerable level at this point, so we will treat the acute flare up and manage her from that point. Will reassess the patient should there be any other issues *------* complications, please feel free to contact us. Thank you for the opportunity concerning this patient and participating in her care. DICTATING PHYSICIAN: ROBINSON AGGARWAL [id number] PHY#: [id number] ID: [id number] JOB#: [id number] ACCT: [id number] cc:ROBINSON AGGARWAL >
[2016-10-26] MEDS: LEVOFLOXACIN 500 MG TABLET PO SCH (10:22)
[2016-10-26] MEDS: DIPHENHYDRAMINE HCL 25 MG CAPSULE PO SCH (10:22)
[2016-10-26] MEDS: LUBIPROSTONE 24 MCG CAPSULE PO SCH (10:23)
[2016-10-26] MEDS: LEVOTHYROXINE SODIUM 0.1 MG TABLET PO SCH (10:23)
[2016-10-26] MEDS: ERTAPENEM SODIUM 1 GM in NORMAL SALINE 50 ML IV SCH (10:28)
[2016-10-26] MEDS: DRONABINOL 2.5 MG CAPSULE PO SCH ×2 (10:28→15:12)
[2016-10-26] MEDS: FENTANYL CITRATE BUCCAL PRN (12:10)
[2016-10-26] MEDS ORDERED: FENTANYL 25 MCG/HR PATCH.TD72 TD ONE (14:45)
[2016-10-26] MEDS ORDERED: FENTANYL 100 MCG/HR PATCH.TD72 TD ONE (14:45)
--- NOTE | 2016-10-26 15:24 | PDOC DISCHARGE SUMMARY ---
General - Admit/Disc Date/PCP Admission Date/Primary Care Provider: 10/22/16 12:42 GILBERT BURGESS Discharge Date: 10/26/16 - Discharge Diagnosis (1) Metastatic adenocarcinoma Is this a current diagnosis for this admission?: YesSummary: Continue treatment per oncology (2) Abdominal pain Is this a current diagnosis for this admission?: YesSummary: Pain management per [facility] (3) Primary cancer of ovary with widespread metastatic disease Is this a current diagnosis for this admission?: Yes (4) Anemia due to antineoplastic chemotherapy Is this a current diagnosis for this admission?: YesSummary: Stable (5) Dehydration Is this a current diagnosis for this admission?: YesSummary: Improved (6) UTI (urinary tract infection) Is this a current diagnosis for this admission?: YesSummary: Continue antibiotics for 7 days (7) Anemia of chronic disease Is this a current diagnosis for this admission?: Yes (8) Hyponatremia Is this a current diagnosis for this admission?: YesSummary: Improved (9) Vomiting Is this a current diagnosis for this admission?: YesSummary: Improved (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 Patient is on regular diet with protein supplements . She is also getting marinol for appetite stimulation - Additional Information Resuscitation Status: Full Code Discharge Diet: Regular Discharge Activity: Activity As Tolerated, Balance Activity w/Rest Home Medications: Levothyroxine Sodium 200 mcg PO DAILY 09/30/14 Ondansetron HCl [Zofran 8 mg Tablet] 1 tab PO Q8HP PRN 07/12/16 Omeprazole 40 mg PO DAILY 08/29/16 Dronabinol [Marinol 2.5 mg Capsule] 5 mg PO BIDACLS #60 capsule 09/28/16 Furosemide [Lasix 20 mg Tablet] 20 mg PO QAM 10/23/16 Metoclopramide HCl [Reglan 10 mg Tablet] 10 mg PO Q8H 10/23/16 Dexamethasone [Decadron 4 Mg Tablet] 4 mg PO BID #60 tablet 10/26/16 Diphenhydramine HCl [Benadryl 25 mg Capsule] 25 mg PO DAILY capsule 10/26/16 Ertapenem Sodium [Invanz Inj 1 gm Vial] 1 gm IV DAILY #7 vial 10/26/16 Fentanyl Citrate [Actiq 400 Mcg Lozenge.hd] 400 mcg BUCCAL Q4HP PRN #30 lozenge.hd 10/26/16 Fentanyl [Duragesic 100 Mcg/Hr Transdermal Patch] 1 each TD Q3D #7 patch.td72 Fentanyl [Duragesic 25 mcg/hr Transdermal Patch] 1 each TD Q3D #7 patch.td72 02/06 Levofloxacin [Levaquin 500 mg Tablet] 500 mg PO DAILY #7 tablet 10/26/16 Lubiprostone [Amitiza 24 Mcg Capsule] 24 mcg PO BID #60 capsule 10/26/16 Promethazine HCl [Phenergan 25 mg Tablet] 25 mg PO Q6HP PRN #60 tablet 10/26/16 History of Present Illness History of Present Illness: JAEL EATON is a 55 year old unfortunate female, known to our service from previous admissions. She has a history stage IV adenosarcoma. She is a patient of Dr Adams, oncologist, locally. He had advised patient to seek Hospice care due to progression of disease despite aggressive treatment. She opted for another opinion instead , and has been seen and treated by [facility] in [place]. They told her she had MMT stage IV ovarian cancer and she could be treated. She received chemotherapy there on 10/19. She returned home yesterday and has been vomiting and having increasing abdominal pain and back pain since she got home. She is unable to keep her pain medications down and her pain has gotten out of control. 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 She has recurrent UTIs. Her urine is cloudy this am. She denies any fevers or chills. 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 Her pain is constant and waxes and wanes in intensity. Hospital Course Hospital Course: Patient was admitted to hospitalist service for dehydration, vomiting after chemotherapy and pain control. She was noted to have UTI by urinalysis. She was empirically started on IV antibiotics. She was given IV Dilaudid for pain control. She was given IV Zofran alternating with IV Phenergan for nausea and vomiting. She received IV hydration for the last 2 days. BUN/creatinine normalized as well as sodium. She had pain management consult placed. [facility] saw the patient and made recommendations regarding her pain analgesia. She was started on fentanyl lollipops, giving her better pain control and oral oxycodone. She'll need 1 more week of antibiotic therapy for her urinary tract infection. She'll be discharged home today with home health. Physical Exam Vital Signs: Temp Pulse Resp BP Pulse Ox 98.4 F 68 16 150/79 H 91 L 10/26/16 07:36 10/26/16 07:36 10/26/16 07:36 10/26/16 07:36 10/26/16 07:36 Intake & Output 10/25/16 10/26/16 10/27/16 06:59 06:59 06:59 Intake Total 3843 3780 Balance 3843 3780 Weight 48.3 kg 48.6 kg General appearance: PRESENT: mild distress, thin, well-developed, other - chronically ill and cachetic Head exam: PRESENT: atraumatic, normocephalic Eye exam: PRESENT: conjunctiva pink, EOMI, PERRLA. ABSENT: scleral icterus Ear exam: PRESENT: normal external ear exam Mouth exam: PRESENT: moist, tongue midline Neck exam: ABSENT: carotid bruit, JVD, lymphadenopathy, thyromegaly Respiratory exam: PRESENT: clear to auscultation cesar, decreased breath sounds - left base. ABSENT: rales, rhonchi, wheezes Cardiovascular exam: PRESENT: RRR. ABSENT: diastolic murmur, rubs, systolic murmur Pulses: PRESENT: normal dorsalis pedis pul Vascular exam: PRESENT: normal capillary refill GI/Abdominal exam: PRESENT: firm, hyperactive bowel sounds - palpable mass, tenderness Rectal exam: PRESENT: deferred Extremities exam: PRESENT: full ROM. ABSENT: calf tenderness, clubbing, pedal edema Musculoskeletal exam: PRESENT: ambulatory Neurological exam: PRESENT: alert, awake, oriented to person, oriented to place , oriented to time, oriented to situation, CN II-XII grossly intact. ABSENT: motor sensory deficit Psychiatric exam: PRESENT: appropriate affect, normal mood. ABSENT: homicidal ideation, suicidal ideation Skin exam: PRESENT: dry, intact, warm. ABSENT: cyanosis, rash Results Laboratory Results: 10/25/16 05:50 10/25/16 05:50 10/23/16 15:40 Clean Catch Midstream Urine Culture - Final Enterococcus Faecalis(Group D) Escherichia Coli Esbl Impressions: Abdomen X-Ray 10/22/16 10:34 IMPRESSION: NONOBSTRUCTED BOWEL-GAS PATTERN. RELATIVELY STABLE APPEARANCE OF KNOWN MASS BETTER CHARACTERIZED ON PRIOR CT. Qualifiers PATEINT BEING DISCHARGED WITH ANY OF THE FOLLOWING DIAGNOSIS?: No Plan Discharge Plan: Discharge home with . Resume home health services. Time Spent: Less than 30 Minutes
[2016-10-26 16:42] VITALS: BP 132/79
[2016-10-29] MEDS ORDERED: FENTANYL 25 MCG/HR PATCH.TD72 TD SCH (10:00)
[2016-10-29] MEDS ORDERED: FENTANYL 100 MCG/HR PATCH.TD72 TD SCH (10:00)
== END 2016-10-26 17:30 | disposition home health service (06) | DRG 948 ==
LOC: ER 09:54 → EH 12:42 → UNDOADMIN 12:47 → 4S 14:33
PROVIDERS: ADMIT Family Medicine; ATTEND Family Medicine
DX: G89.3 Neoplasm related pain (acute) (chronic) (principal); C56.2 Malignant neoplasm of left ovary; C79.51 Secondary malignant neoplasm of bone; E46 Unspecified protein-calorie malnutrition; Z68.1 Body mass index [BMI] 19.9 or less, adult; E87.1 Hypo-osmolality and hyponatremia; N39.0 Urinary tract infection, site not specified; N82.3 Fistula of vagina to large intestine; R10.84 Generalized abdominal pain; D64.81 Anemia due to antineoplastic chemotherapy; E86.0 Dehydration; R11.2 Nausea with vomiting, unspecified; E03.9 Hypothyroidism, unspecified; K21.9 Gastro-esophageal reflux disease without esophagitis; Z79.899 Other long term (current) drug therapy; Z85.528 Personal history of other malignant neoplasm of kidney; Z90.5 Acquired absence of kidney; Z93.3 Colostomy status; Z90.710 Acquired absence of both cervix and uterus; Z93.6 Other artificial openings of urinary tract status; Z88.1 Allergy status to other antibiotic agents; Z91.041 Radiographic dye allergy status
CPT/HCPCS: 36415; 36591; 74020; 80048; 80053; 81001; 85025; 87086; 87088; 87186; 93005; 93010; 96361; 96374; 96375; 96376; 99285; J1100; J1170; J1335; J1642; J1650; J2405; J2550; J3490; J7030; J8499; Q0167